=== PATIENT | male | born 1980 | race Two or more races ===

== ENCOUNTER 2024-08-25 16:02 | Outpatient (CLI) | payer BC | END 2024-08-25 16:03 | disposition home or self-care (01) | LOC: SCSRAD 16:02 | PROVIDERS: ATTEND Family Medicine | DX: S59.912A Unspecified injury of left forearm, initial encounter (principal) ==

== ENCOUNTER 2025-11-08 11:23 | Outpatient (CLI) | payer BC | END 2025-11-08 11:24 | disposition home or self-care (01) | LOC: SCSMRI 11:23 | PROVIDERS: ATTEND Family Medicine | DX: M25.512 Pain in left shoulder (principal); G89.29 Other chronic pain; M75.112 Incomplete rotator cuff tear or rupture of left shoulder, not specified as traumatic; M25.412 Effusion, left shoulder ==